=== PATIENT | male | born 1960 | race Caucasian/White ===

== ENCOUNTER 2019-03-10 10:58 | Emergency (ER) | payer OTHER, BC ==
[2019-03-10 11:13] VITALS: BP 120/84
[2019-03-10] MEDS ORDERED: Ketorolac 60 MG/2 ML SDV IM ONE (11:22)
--- NOTE | 2019-03-10 11:26 | EDM.PDOC ---
ED HPI GENERAL MEDICAL PROBLEM - General Chief Complaint: Back Pain or Injury Stated Complaint: BACK PAIN Time Seen by Provider: 03/10/19 11:15 Source of Information: Reports: Patient, Family History Limitations: Reports: No Limitations - History of Present Illness INITIAL COMMENTS - FREE TEXT/NARRATIVE: 58-year-old male was lifting heavy objects yesterday, laid down for a while and when he got up an hour later he had intense lower back discomfort. He has not taken anything for pain but this morning it still stiff and sore so he wanted it checked. No radiculopathy, no urinary symptoms. Location: Reports: Back Lower Back Pain Score (Numeric/FACES): 2 - Related Data Allergies Allergy/AdvReac Type Severity Reaction Status Date / Time No Known Allergies Allergy Verified 10/02/18 21:12 Home Meds: Home Meds Pantoprazole [Protonix] 40 mg PO BID 10/02/16 [History] Nadolol [Naldol] 10 mg PO BID 10/02/18 [History] Past Medical History HEENT History: Reports: Other (See Below) Other HEENT History: tinnitus Musculoskeletal History: Reports: Fracture Hematologic History: Reports: Anemia, Blood Transfusion(s), Other (See Below) Other Hematologic History: Thrombocytopenia Oncologic (Cancer) History: Reports: Colon, Liver, Metastatic, Other (See Below) Other Oncologic History: Stage 4 Colon Cancer Dermatologic History: Reports: Other (See Below) Other Dermatologic History: rash - Infectious Disease History Infectious Disease History: Reports: Chicken Pox, Shingles - Past Surgical History GI Surgical History: Reports: Cholecystectomy, Colon, Colonoscopy, Other (See Below) Oncologic Surgical History: Reports: Other (See Below) Social & Family History - Family History Cardiac: Reports: Heart Failure, Pacemaker Respiratory: Reports: COPD, Pneumothorax Musculoskeletal: Reports: Osteoarthritis Oncologic: Reports: Colon, Skin - Tobacco Use Smoking Status *Q: Never Smoker - Caffeine Use Caffeine Use: Reports: Coffee - Recreational Drug Use Recreational Drug Use: No ED ROS GENERAL - Review of Systems Review Of Systems: See Below Constitutional: Denies: Fever, Chills Respiratory: Denies: Shortness of Breath Cardiovascular: Denies: Chest Pain GI/Abdominal: Denies: Nausea, Vomiting : Denies: Incontinence Neurological: Denies: Paresthesia ED EXAM,LOWER BACK PAIN/INJURY - Physical Exam Exam: See Below Exam Limited By: No Limitations General Appearance: Alert, No Apparent Distress Respiratory/Chest: No Respiratory Distress Back Exam: Paraspinal Tenderness (Some paraspinal tenderness to palpation over the lumbar spine bilaterally, no increased rotation pain) Course - Vital Signs Last Recorded V/S: Last Vital Signs Temp 96 F 03/10/19 11:13 Pulse 63 03/10/19 11:13 Resp 16 03/10/19 11:13 BP 120/84 03/10/19 11:13 Pulse Ox 96 03/10/19 11:13 - Orders/Labs/Meds Meds: Medications Discontinued Medications Generic Name Dose Route Start Last Admin Trade Name Viktoria PRN Reason Stop Dose Admin Ketorolac Tromethamine 60 mg 03/10/19 11:22 03/10/19 11:28 Toradol IM 03/10/19 11:23 60 mg ONETIME ONE Administration - Re-Assessments/Exams Free Text/Narrative Re-Assessment/Exam: 03/10/19 11:24 Patient was given 60 mg of IM Toradol, and 15 Flexeril to use up to 3 times daily over the next several days. If not improving satisfactorily he can recheck in 3-4 days and consider physical therapy consultation. He was encouraged to stay active and take ibuprofen or naproxen on a regular basis. Departure - Departure Time of Disposition: 11:32 Disposition: Home, Self-Care 01 Condition: Good Clinical Impression: Low back strain Qualifiers: Encounter type: initial encounter Qualified Code(s): S39.012A - Strain of muscle, fascia and tendon of lower back, initial encounter - Discharge Information Instructions: Low Back Sprain Referrals: Julius Wilson MD [Primary Care Provider] - Forms: ED Department Discharge Care Plan Goals: Regular dose of ibuprofen or naproxen will help along with Flexeril up to 3 times a day as directed. Try to increase activity as tolerated and consider rechecking in 3-4 days if not improving satisfactorily. Expect some stiffness and soreness for the next several days.
== END 2019-03-10 11:32 | disposition home or self-care (01) ==
LOC: JP.ED 10:58
DX: S39.012A Strain of muscle, fascia and tendon of lower back, initial encounter (principal); Z90.49 Acquired absence of other specified parts of digestive tract; Z86.2 Personal history of diseases of the blood and blood-forming organs and certain disorders involving the immune mechanism; X50.0XXA Overexertion from strenuous movement or load, initial encounter
CPT/HCPCS: 96372; 99283; J1885

== ENCOUNTER 2020-05-09 21:13 | Emergency (ER) | payer BC, OTHER ==
[2020-05-09 22:02] VITALS: BP 151/108; PULSE 70
--- NOTE | 2020-05-09 23:02 | EDM.PDOC ---
<White,Taya - Last Filed: 05/09/20 22:56> ED HPI GENERAL MEDICAL PROBLEM - General Chief Complaint: Abdominal Pain Stated Complaint: ABD PAIN Time Seen by Provider: 05/09/20 22:50 Source of Information: Reports: Patient History Limitations: Reports: No Limitations - History of Present Illness INITIAL COMMENTS - FREE TEXT/NARRATIVE: 59 yo male with PMH of colon cancer 7 years ago. Woke this AM with lower ABD pain and bloating. last BM was earlier today and it was normal for him. denies fever, chills, or general illness. no appetite today. denies nausea or vomiting. Abdomen Pain Score (Numeric/FACES): 3 - Related Data Allergies Allergy/AdvReac Type Severity Reaction Status Date / Time No Known Allergies Allergy Verified 05/09/20 21:59 Home Meds: Home Meds Pantoprazole [Protonix] 40 mg PO DAILY 10/02/16 [History] nadoloL [Naldol] 10 mg PO BID 10/02/18 [History] Simethicone [Gas-X] 1 tab PO ASDIRECTED PRN 05/09/20 [History] Past Medical History HEENT History: Reports: Other (See Below) Other HEENT History: tinnitus Gastrointestinal History: Reports: GERD Musculoskeletal History: Reports: Fracture Hematologic History: Reports: Anemia, Blood Transfusion(s), Other (See Below) Other Hematologic History: Thrombocytopenia Oncologic (Cancer) History: Reports: Colon, Liver, Metastatic, Other (See Below) Other Oncologic History: Stage 4 Colon Cancer Dermatologic History: Reports: Other (See Below) Other Dermatologic History: rash - Infectious Disease History Infectious Disease History: Reports: Shingles - Past Surgical History GI Surgical History: Reports: Cholecystectomy, Colon, Colonoscopy, Other (See Below) Other GI Surgeries/Procedures: esoph. varicies Oncologic Surgical History: Reports: Other (See Below) Social & Family History - Family History Family Medical History: Noncontributory Cardiac: Reports: Heart Failure, Pacemaker Respiratory: Reports: COPD, Pneumothorax Musculoskeletal: Reports: Osteoarthritis Oncologic: Reports: Colon, Skin - Tobacco Use Smoking Status *Q: Never Smoker - Caffeine Use Caffeine Use: Reports: Coffee - Recreational Drug Use Recreational Drug Use: Yes ED ROS GENERAL - Review of Systems Review Of Systems: See Below Constitutional: Reports: Fatigue. Denies: Fever, Chills Respiratory: Denies: Shortness of Breath, Wheezing Cardiovascular: Denies: Chest Pain GI/Abdominal: Reports: Abdominal Pain, Anorexia. Denies: Constipation, Joanie rrhea, Nausea : Denies: Dysuria, Flank Pain Skin: Denies: Rash ED EXAM, GI/ABD - Physical Exam Exam: See Below Exam Limited By: No Limitations General Appearance: Alert, WD/WN, No Apparent Distress Respiratory/Chest: No Respiratory Distress, Lungs Clear, Normal Breath Sounds, No Accessory Muscle Use, Chest Non-Tender. No: Crackles, Rhonchi, Wheezing Cardiovascular: Regular Rate, Rhythm, No Murmur GI/Abdominal Exam: Soft, Distended (mild), Tender (lower), Abnormal Bowel Sounds (hyperactive) Departure - Departure Disposition: Home, Self-Care 01 Clinical Impression: Ileus - Discharge Information Referrals: Julius Wilson MD [Primary Care Provider] - Forms: ED Department Discharge Additional Instructions: Try bowel rest, gum chewing, walking, please follow-up with your primary care next week for further evaluation, call or return to the emergency department worsening of symptoms Sepsis Event Note (ED) - Evaluation Sepsis Screening Result: No Definite Risk <OfficerJesus - Last Filed: 05/10/20 02:45> Course - Vital Signs Last Recorded V/S: Last Vital Signs Temp 98.2 F 05/09/20 22:01 Pulse 70 05/09/20 22:01 Resp 16 05/09/20 22:01 BP 151/108 H 05/09/20 22:01 Pulse Ox 94 L 05/09/20 22:01 - Orders/Labs/Meds Orders: Active Orders 24 hr Category Date Time Status Sodium Chloride 0.9% [Normal Saline] 1,000 ml Med 05/09/20 23:30 Active IV ASDIRECTED Medication Orders Sodium Chloride (Normal Saline) 1,000 mls @ 500 mls/hr IV ASDIRECTED PACHECO Last Admin: 05/09/20 23:39 Dose: 500 mls/hr Documented by: OLAMIDE Labs: Laboratory Tests 05/09/20 05/09/20 Range/Units 23:00 23:00 WBC 5.7 (4.5-11.0) K/uL RBC 5.19 (4.30-5.90) M/uL Hgb 15.3 H (12.0-15.0) g/dL Hct 45.4 (40.0-54.0) % MCV 88 (80-98) fL MCH 30 (27-31) pg MCHC 34 (32-36) % Plt Count 63 L (150-400) K/uL Neut % (Auto) 85 H (36-66) % Lymph % (Auto) 8 L (24-44) % [place] % (Auto) 6 (2-6) % Eos % (Auto) 0 L (2-4) % Baso % (Auto) 0 (0-1) % Sodium 138 L (140-148) mmol/L Potassium 3.9 (3.6-5.2) mmol/L Chloride 101 (100-108) mmol/L Carbon Dioxide 26 (21-32) mmol/L Anion Gap 14.9 H (5.0-14.0) mmol/L BUN 11 (7-18) mg/dL Creatinine 1.0 (0.8-1.3) mg/dL Est Cr Clr Drug Dosing 92.11 mL/min Estimated GFR (MDRD) > 60 (>60) Glucose 122 H (74-106) mg/dL Calcium 9.2 (8.5-10.1) mg/dL Total Bilirubin 2.1 H (0.2-1.0) mg/dL AST 16 (15-37) U/L ALT 11 L (12-78) U/L Alkaline Phosphatase 77 (46-116) U/L C-Reactive Protein 2.73 H (0.0-0.3) mg/dL Total Protein 7.8 (6.4-8.2) g/dL Albumin 3.7 (3.4-5.0) g/dL Globulin 4.1 H (2.3-3.5) g/dL Albumin/Globulin Ratio 0.9 L (1.2-2.2) Meds: Medications Generic Name Dose Route Start Last Admin Trade Name Freq PRN Reason Stop Dose Admin Sodium Chloride 1,000 mls @ 500 mls/hr 05/09/20 23:30 05/09/20 23:39 Normal Saline IV 500 mls/hr ASDIRECTED PACHECO Administration Discontinued Medications Generic Name Dose Route Start Last Admin Trade Name Freq PRN Reason Stop Dose Admin Sodium Chloride 85 mls @ 4 mls/sec 05/10/20 00:49 05/10/20 00:59 Normal Saline IV 05/10/20 00:50 4 mls/sec ASDIRECTED STA Administration Iopamidol 150 ml 05/10/20 00:49 05/10/20 00:59 Isovue-300 (61%) IV 05/10/20 00:50 150 ml . DIRECTED STA Administration Metoclopramide HCl 5 mg 05/09/20 23:28 05/09/20 23:41 Reglan IVPUSH 05/09/20 23:29 5 mg ONETIME ONE Administration Departure - Departure Time of Disposition: 02:42 Condition: Fair Sepsis Event Note (ED) - Focused Exam Vital Signs: Vital Signs Temp Pulse Resp BP Pulse Ox 05/09/20 22:01 98.2 F 70 16 151/108 H 94 L - Assessment/Plan Plan: Assessment Acuity = acute Site and laterality = ileus small bowel with mild ascites complicated patient known history of cirrhosis Etiology = unknown Manifestations = abdominal distention Location of injury = Home Lab values = CBC unremarkable, CMP reveals a bilirubin elevated 2.1 consistent hyperbilirubinemia CRP elevated 2.73 CT scan describes ileus above Plan I did review CT scan results with him as well as provided them a copy, plan is to follow-up primary care this week This note was dictated using [employer] voice recognition software please call with any questions on syntax or grammar.
[2020-05-09] MEDS ORDERED: Metoclopramide 10 MG/2 ML SDV IVPUSH ONE (23:28)
[2020-05-09] MEDS ORDERED: Sodium Chloride 0.9% 1,000 ML IV SCH (23:30)
[2020-05-10] MEDS ORDERED: Iopamidol 612 MG/ML 150 ML Bottle IV STA (00:49)
--- NOTE | 2020-05-10 02:17 | CRLCT ---
INDICATION: Abdominal pain and distention. History of colon cancer. COMPARISON: 10/02/2018 TECHNIQUE: CT examination of the abdomen and pelvis was performed with the uneventful intravenous administration of 150 cc of Isovue-300 while 3 mm thick axial sections were obtained from the lung bases through the pubic symphysis. Oral contrast was not administered. Please note that all CT scans at this facility use dose modulation, iterative reconstruction, and/or weight-based dosing when appropriate to reduce radiation dose to as low as reasonably achievable. FINDINGS: There is new mild ascites, with a mild amount of fluid seen in the right pericolic gutter and in the pelvis. Again seen is mild dilatation of the small bowel, without any distinct point of transition. There is also mild enhancement of the small bowel, consistent with a venous engorgement, probably related to elevated portal venous pressures. In the abdomen, the liver remains small and nodular, consistent with cirrhosis. It measures 15.1 centimeters in length, previously 16.2 centimeters. Again seen are small calcifications and cysts in the liver common nonspecific. Given the absence of change, these are unlikely to represent malignancy. The spleen remains prominently enlarged, but has slightly decreased in size, now measuring 23.4 centimeters in length, previously 25.3 centimeters. There is no sign of any splenic mass. Again seen is prominent cavernous transformation of the portal vein, with the innumerable portosystemic collaterals seen throughout the abdomen. Again seen is prominent esophageal and gastric varices, and mild recanalization of the umbilical vein. Splenorenal shunting is also seen. The pancreas and adrenals are normal in appearance. The simple cyst arising from the upper pole of the left kidney has increased in size, 6.1 centimeters, previously 5.3 centimeters. I incorrectly reported this as being in the right kidney on the previous study. The kidneys are otherwise normal in appearance. The gallbladder is again seen to be absent, consistent with cholecystectomy. The abdominal aorta is normal in caliber with no sign of dilatation. There is no sign of retroperitoneal mass or adenopathy. The stomach is moderately distended, nonspecific. The colon in the abdomen is normal in appearance. There is a new small amount of ascites in a small left periumbilical hernia. In the pelvis, the appendix is nonvisualized, but there is no sign of an inflammatory process in the area of the appendix. There is a stable satisfactory appearing rectosigmoid anastomosis. The colon and rectum in the pelvis are otherwise normal in appearance. The prostate has decreased in size but remains mildly enlarged and is otherwise normal in appearance. The urinary bladder is normal in appearance. There is no sign of pelvic or inguinal mass or adenopathy. There is no sign of free air or free fluid in the abdomen or pelvis. The lung bases are clear. There is stable minimal posterior subluxation of L4 on L5 with normal L4-5 disc height. The rest of the osseous structures are normal in appearance. IMPRESSION: New mild ascites. Continued mild dilatation of the small bowel without a point of transition. This is probably a mild ileus. The small bowel is also seen to be mildly enhancing, probably from venous engorgement related to elevated portal venous pressures. CT of the abdomen shows continued small, cirrhotic liver with prominent splenomegaly. Both the liver and spleen have slightly decreased in size during the interval. Again seen are prominent esophageal and gastric varices and prominence splenorenal shunting. 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 Status post cholecystectomy. CT of the pelvis shows a new small amount of fluid in a small left periumbilical hernia. Stable satisfactory appearance of a rectosigmoid anastomosis. Please note that all CT scans at this facility use dose modulation, iterative reconstruction, and/or weight-based dosing when appropriate to reduce radiation dose to as low as reasonably achievable. Dictated by Rito Norton MD @ May 10 2020 2:02AM Signed by Dr. Rito Norton @ May 10 2020 2:14AM
== END 2020-05-10 02:55 | disposition home or self-care (01) ==
LOC: JP.ED 21:13
DX: K56.7 Ileus, unspecified (principal); K21.9 Gastro-esophageal reflux disease without esophagitis; Z79.899 Other long term (current) drug therapy; Z90.49 Acquired absence of other specified parts of digestive tract; Z98.890 Other specified postprocedural states
CPT/HCPCS: 36415; 74177; 80053; 85025; 86140; 96374; 99284; J2765; J7030; J7050; Q9967

== ENCOUNTER 2020-06-18 11:31 | Emergency (ER) | payer OTHER, BC ==
[2020-06-18 11:53] VITALS: BP 134/76; PULSE 57
[2020-06-18] MEDS ORDERED: Bacitracin Oint 1 GM U/D Packet TOP ONE (12:06)
--- NOTE | 2020-06-18 12:13 | EDM.PDOC ---
ED HPI GENERAL MEDICAL PROBLEM - General Chief Complaint: Laceration Stated Complaint: BUMP ON HEAD Time Seen by Provider: 06/18/20 12:00 Source of Information: Reports: Patient, RN History Limitations: Reports: No Limitations - History of Present Illness INITIAL COMMENTS - FREE TEXT/NARRATIVE: Just prior to arrival patient was on a ladder and stood up underneath the basketball hoop and cut the top of his forehead left of center. He was concerned of his low platelet count and due to the amount of blood he came in to be seen. Patient did not have any loss of consciousness. He did not fall off the ladder. Patient was unable to determine whether he would need stitches or just a Band-Aid. He came in precautionary. Onset: Today Onset Date: 06/18/20 Onset Time: 11:30 Duration: Minutes: Location: Reports: Head Quality: Reports: Other (No pain) Severity: Mild Improves with: Reports: None Worsens with: Reports: None Context: Reports: Activity (It up under basketball hoop while on a ladder.) Associated Symptoms: Reports: Other (Concern for low platelet count) Head Pain Score (Numeric/FACES): 0 - Related Data Allergies Allergy/AdvReac Type Severity Reaction Status Date / Time No Known Allergies Allergy Verified 06/18/20 12:07 Home Meds: Home Meds Pantoprazole [Protonix] 40 mg PO DAILY 10/02/16 [History] nadoloL [Naldol] 10 mg PO BID 10/02/18 [History] Simethicone [Gas-X] 1 tab PO ASDIRECTED PRN 05/09/20 [History] Past Medical History HEENT History: Reports: Other (See Below) Other HEENT History: tinnitus Gastrointestinal History: Reports: GERD Musculoskeletal History: Reports: Fracture Hematologic History: Reports: Anemia, Blood Transfusion(s), Other (See Below) Other Hematologic History: Thrombocytopenia Oncologic (Cancer) History: Reports: Colon, Liver, Metastatic, Other (See Below) Other Oncologic History: Stage 4 Colon Cancer Dermatologic History: Reports: Other (See Below) Other Dermatologic History: rash - Infectious Disease History Infectious Disease History: Reports: Shingles - Past Surgical History GI Surgical History: Reports: Cholecystectomy, Colon, Colonoscopy, Other (See Below) Other GI Surgeries/Procedures: esoph. varicies Oncologic Surgical History: Reports: Other (See Below) Social & Family History - Family History Family Medical History: Noncontributory Cardiac: Reports: Heart Failure, Pacemaker Respiratory: Reports: COPD, Pneumothorax Musculoskeletal: Reports: Osteoarthritis Oncologic: Reports: Colon, Skin - Caffeine Use Caffeine Use: Reports: Coffee ED ROS GENERAL - Review of Systems Review Of Systems: See Below Constitutional: Reports: No Symptoms HEENT: Reports: No Symptoms Respiratory: Reports: No Symptoms Cardiovascular: Reports: No Symptoms Endocrine: Reports: No Symptoms GI/Abdominal: Reports: No Symptoms : Reports: No Symptoms Musculoskeletal: Reports: No Symptoms Skin: Reports: Lesions (Left center top of head.) Neurological: Denies: Confusion, Dizziness, Headache, Numbness, Paresthesia Hematologic/Lymphatic: Reports: Easy Bleeding (Low platelet count due to cancer diagnosis) Immunologic: Reports: No Symptoms ED EXAM, SKIN/RASH Exam: See Below Text/Narrative:: Patient with a 3 cm skin tear top left center of head. Areas cleaned. No foreign bodies visualized. Tetanus is current. Bleeding has stopped. Patient did not lose consciousness, has no dizziness, has no pain. Exam Limited By: No Limitations General Appearance: Alert, WD/WN, No Apparent Distress Neck: Normal Inspection, Supple, Non-Tender, Full Range of Motion Neurological: Alert, Oriented, CN II-XII Intact, Normal Cognition, Normal Gait, Normal Reflexes, No Motor/Sensory Deficits Psychiatric: Normal Affect, Normal Mood Skin: Warm, Dry, Normal Color, No Rash, Wound/Incision ( 3 cm skin tear left top center of head. Does not require sutures.) Location, Skin: Head (Left top center) Characteristics: Linear Associated features: Tenderness ED SKIN PROCEDURES - Laceration/Wound Repair Head Appearance: Superficial Distal NVT: Neuro & Vascular Intact Skin Prep: Saline Exploration/Debridement/Repair: Wound Explored, In a Bloodless Field, Explored to Base Closed with: Other (Band-Aid) Lac/Wound length In cm: 3 Tetanus Status Addressed: Yes Complications: No Progress/Comments: 3 cm skin tear. No sutures required. Area cleansed with saline. Wound bed explored no foreign bodies noted. Applied bacitracin and Band-Aid. Tetanus is current Course - Vital Signs Text/Narrative:: Wound cleaned with normal saline. Explored for foreign bodies none found. No sutures required tetanus current. Will apply bacitracin and cover with Band- Aid. Patient comfortable with this plan. Last Recorded V/S: Last Vital Signs Temp 36.9 C 06/18/20 11:52 Pulse 57 L 06/18/20 11:52 Resp 17 06/18/20 11:52 BP 134/76 06/18/20 11:52 Pulse Ox 95 06/18/20 11:52 - Orders/Labs/Meds Meds: Medications Discontinued Medications Generic Name Dose Route Start Last Admin Trade Name Freq PRN Reason Stop Dose Admin Bacitracin 1 dose 06/18/20 12:06 Bacitracin Oint 1 Gm TOP 06/18/20 12:07 ONETIME ONE Departure - Departure Time of Disposition: 12:43 Disposition: Home, Self-Care 01 Condition: Good Clinical Impression: Skin tear, Abrasion - Discharge Information *PRESCRIPTION DRUG MONITORING PROGRAM REVIEWED*: Not Applicable *COPY OF PRESCRIPTION DRUG MONITORING REPORT IN PATIENT GALLO: Not Applicable Instructions: Skin Tear, [id number] Referrals: Julius Wilson MD [Primary Care Provider] - Forms: ED Department Discharge Care Plan Goals: Report any signs or symptoms of infection to primary care provider or return to ER if necessary. Keep area covered as needed. May shower in 24 hours. Sepsis Event Note (ED) - Focused Exam Vital Signs: Vital Signs Temp Pulse Resp BP Pulse Ox 06/18/20 11:52 36.9 C 57 L 17 134/76 95 - Assessment/Plan Assessment:: Skin tear Plan: Discharge to home
== END 2020-06-18 12:43 | disposition home or self-care (01) ==
LOC: JP.ED 11:31
DX: S01.91XA Laceration without foreign body of unspecified part of head, initial encounter (principal); K21.9 Gastro-esophageal reflux disease without esophagitis; Z79.899 Other long term (current) drug therapy; W22.8XXA Striking against or struck by other objects, initial encounter
CPT/HCPCS: 99282

== ENCOUNTER 2022-06-26 07:25 | Day surgery (SDC) | payer OTHER ==
[2022-06-26] MEDS ORDERED: Lactated Ringers 1,000 ML IV SCH (08:00)
[2022-06-26] MEDS ORDERED: fentaNYL 100 MCG/2 ML SDV ONE (08:20)
[2022-06-26] MEDS ORDERED: Propofol 200 MG/20 ML SDV ONE (08:20)
[2022-06-26] MEDS ORDERED: Midazolam 1 MG/ML 2 ML SDV ONE (08:20)
[2022-06-26 11:06] VITALS: BP 114/72; PULSE 48
== END 2022-06-26 11:11 | disposition home or self-care (01) ==
LOC: JP.SDS 07:25
PROVIDERS: ATTEND Family Medicine
DX: Z12.11 Encounter for screening for malignant neoplasm of colon (principal); D12.5 Benign neoplasm of sigmoid colon; K64.1 Second degree hemorrhoids; K76.6 Portal hypertension; I85.10 Secondary esophageal varices without bleeding; D69.6 Thrombocytopenia, unspecified; Z85.038 Personal history of other malignant neoplasm of large intestine; Z90.49 Acquired absence of other specified parts of digestive tract
CPT/HCPCS: 45385; 88305; J2250; J2704; J3010; J7120

== ENCOUNTER 2022-10-31 07:45 | Day surgery (SDC) | payer OTHER ==
[~2022-10-31 07:45] MED LIST: Propofol 200 MG/20 ML SDV ONE; fentaNYL 50 MCG/ML SDV ONE
[2022-10-31] MEDS ORDERED: Lactated Ringers 1,000 ML IV SCH (08:30)
[2022-10-31] MEDS ORDERED: Sodium Chloride 0.9% 1,000 ML IV SCH (09:00)
[2022-10-31 10:36] VITALS: BP 113/78; PULSE 51
== END 2022-10-31 10:42 | disposition home or self-care (01) ==
LOC: JP.SDS 07:45
PROVIDERS: ATTEND Family Medicine
DX: Z12.11 Encounter for screening for malignant neoplasm of colon (principal); I10 Essential (primary) hypertension; Z86.010 Personal history of colon polyps; Z98.890 Other specified postprocedural states; Z79.899 Other long term (current) drug therapy
CPT/HCPCS: 45378; J2704; J3010; J7030

== ENCOUNTER 2023-11-11 12:33 | Emergency (ER) | payer OTHER ==
[2023-11-11 13:00] VITALS: BP 125/94; PULSE 97
[2023-11-11 13:52] LABS: BASOPHILS ABSOLUTE AUTO 0.03 K/uL (0.00-0.10); BASOPHILS PERCENT AUTO 0.4 % (0.1-1.3); EOSINOPHILS PERCENT AUTO 0.1 % (0.0-5.4); HEMATOCRIT 45.6 % (38.4-49.7); HEMOGLOBIN 16.3 g/dL (12.9-16.9); IMMATURE GRAN ABSOLUTE AUTO 0.04 K/uL (0.00-0.23); IMMATURE GRAN PERCENT AUTO 0.5 % (0.0-0.7); LYMPHOCYTES ABSOLUTE AUTO 0.22 K/uL (0.8-3.3); LYMPHOCYTES PERCENT AUTO 2.8 % (11.4-47.7); MEAN CORPUSCULAR HEMOGLOBIN 32.2 pg (31.6-35.5); MEAN CORPUSCULAR HGB CONC 35.7 g/dL (31.6-35.5); MEAN CORPUSCULAR VOLUME 90.1 fL (81.4-99.0); MONOCYTES ABSOLUTE AUTO 0.21 K/uL (0.20-0.90); MONOCYTES PERCENT AUTO 2.7 % (3.3-12.6); NEUTROPHILS ABSOLUTE AUTO 7.31 K/uL (1.0-7.6); NEUTROPHILS PERCENT AUTO 93.5 % (40.0-78.1); PLATELET COUNT,PLT 42 K/uL (130-375); RED BLOOD CELL COUNT 5.06 M/uL (4.14-5.76); WHITE BLOOD CELL COUNT,WBC 7.8 K/uL (3.2-11.0)
[2023-11-11 13:55] LABS: EOSINOPHILS ABSOLUTE AUTO 0.01 K/uL (0.00-0.40)
[2023-11-11] MEDS ORDERED: Iopamidol 612 MG/ML 100 ML Bottle IV SCH (14:00)
[2023-11-11] MEDS ORDERED: Sodium Chloride 0.9% 50 ML IV SCH (14:00)
[2023-11-11 14:11] LABS: APPEARANCE,URINE CLEAR (CLEAR); BILIRUBIN,URINE SMALL (NEGATIVE); COLOR,URINE YELLOW (YELLOW); GLUCOSE,URINE NEGATIVE (NEGATIVE); KETONES,URINE TRACE mg/dL (NEGATIVE); LEUKOCYTE ESTERASE,URINE NEGATIVE (NEGATIVE); NITRITE,URINE NEGATIVE (NEGATIVE); OCCULT BLOOD,URINE MODERATE (NEGATIVE); PROTEIN,URINE 100 mg/dL (NEGATIVE)
[2023-11-11 14:13] LABS: ALANINE AMINOTRANSFERASE,ALT 15 U/L (12-78); ALBUMIN 3.7 g/dL (3.4-5.0); ALKALINE PHOSPHATASE 70 U/L (46-116); ASPARTATE AMNIOTRANSFERASE,AST 20 U/L (15-37); BILIRUBIN TOTAL 3.2 mg/dL (0.2-1.0); BLOOD UREA NITROGEN,BUN 17 mg/dL (7-18); CALCIUM 8.5 mg/dL (8.5-10.1); CARBON DIOXIDE,CO2 26 mmol/L (21-32); CHLORIDE,CL 102 mmol/L (100-108); EST CRCL DRUG DOSING (CG) 83.67 mL/min; ESTIMATED GFR 86 mL/min (>60); GLUCOSE RANDOM 177 mg/dL (74-106); MAGNESIUM 1.9 mg/dL (1.8-2.4); POTASSIUM,K 4.5 mmol/L (3.6-5.2); PROTEIN TOTAL,TP 7.4 g/dL (6.4-8.2); SODIUM,NA 137 mmol/L (140-148)
[2023-11-11 14:15] LABS: ANION GAP 13.5 mmol/L (5.0-14.0)
[2023-11-11 14:18] LABS: WBC,URINE 0-5 (0-5)
[2023-11-11 14:19] LABS: AMORPHOUS SEDIMENT,URINE NOT SEEN; BACTERIA,URINE RARE; EPITHELIAL CELLS,URINE RARE; MUCUS,URINE MODERATE; RBC,URINE 20-30 (0-5)
== END 2023-11-11 16:35 | disposition home or self-care (01) ==
LOC: JP.ED 12:33
DX: R10.30 Lower abdominal pain, unspecified (principal); K21.9 Gastro-esophageal reflux disease without esophagitis; Z79.899 Other long term (current) drug therapy
CPT/HCPCS: 36415; 74177; 80053; 81001; 83690; 83735; 85025; 86140; 99283; 99284; J3490; Q9967